=== PATIENT | male | born 1940 | race Caucasian/White ===

== ENCOUNTER 2018-07-23 14:01 | Emergency (ER) | payer OTHER ==
--- NOTE | 2018-07-23 16:12 | RAD REPORT ---
EXAM DESCRIPTION: RAD - Hip Right 2 View - 07/23/2018 4:07 pm CLINICAL HISTORY: Right hip pain status post fall FINDINGS: No fracture or dislocation is seen. The bones are osteoporotic. If patient continues to have symptoms to suggest an occult fracture MRI would be recommended
--- NOTE | 2018-07-23 16:43 | EDPHYS ---
Physician Documentation [facility] Name: Adolfo Dennis Age: 77 yrs Sex: Male : 1940 Arrival Date: 07/23/2018 Time: 14:07 Bed 13 Private MD: ADOLFO CHENG ED Physician Jose R Buchanan HPI: 07/23 16:19 This 77 yrs old Male presents to ER via Wheelchair with complaints of Fall jr8 Injury - HIP,BACK. 16:19 Details of fall: The patient fell from an upright position, while standing. Onset: The jr8 symptoms/episode began/occurred acutely, 2 day(s) ago. Associated injuries: The patient sustained mid back, right hip. Severity of symptoms: At their worst the symptoms were mild, in the emergency department the symptoms are unchanged. The patient has not experienced similar symptoms in the past. The patient has not recently seen a physician. Patient stated that he was walking on his wood floors with his socks at home. Slipped falling backwards landing on back and right hip. Pain since then. Able to bear weight . Historical: - Allergies: 14:26 No Known Allergies; aj1 - PMHx: 14:26 acid reflux; Hypertension; Hypothyroidism; LYMPHOMA; aj1 - Immunization history:: Adult Immunizations up to date. - Social history:: Smoking status: Patient/guardian denies using tobacco. - Ebola Screening: : No symptoms or risks identified at this time. ROS: 16:19 Eyes: Negative for injury, pain, redness, and discharge, ENT: Negative for injury, jr8 pain, and discharge, Neck: Negative for injury, pain, and swelling, Cardiovascular: Negative for chest pain, palpitations, and edema, Respiratory: Negative for shortness of breath, cough, wheezing, and pleuritic chest pain, Abdomen/GI: Negative for abdominal pain, nausea, vomiting, diarrhea, and constipation, Skin: Negative for injury, rash, and discoloration, Neuro: Negative for headache, weakness, numbness, tingling, and seizure. 16:19 Back: Positive for pain at rest, pain with movement, of the right mid back. 16:19 MS/extremity: Positive for pain, tenderness, of the right hip. Exam: 16:19 Head/Face: Normocephalic, atraumatic. Eyes: Pupils equal round and reactive to light, jr8 extra-ocular motions intact. Lids and lashes normal. Conjunctiva and sclera are non-icteric and not injected. Cornea within normal limits. Periorbital areas with no swelling, redness, or edema. ENT: Nares patent. No nasal discharge, no septal abnormalities noted. Tympanic membranes are normal and external auditory canals are clear. Oropharynx with no redness, swelling, or masses, exudates, or evidence of obstruction, uvula midline. Mucous membranes moist. Neck: Trachea midline, no thyromegaly or masses palpated, and no cervical lymphadenopathy. Supple, full range of motion without nuchal rigidity, or vertebral point tenderness. No Meningismus. Chest/axilla: Normal chest wall appearance and motion. Nontender with no deformity. No lesions are appreciated. Cardiovascular: Regular rate and rhythm with a normal S1 and S2. No gallops, murmurs, or rubs. Normal PMI, no JVD. No pulse deficits. Respiratory: Lungs have equal breath sounds bilaterally, clear to auscultation and percussion. No rales, rhonchi or wheezes noted. No increased work of breathing, no retractions or nasal flaring. Abdomen/GI: Soft, non-tender, with normal bowel sounds. No distension or tympany. No guarding or rebound. No evidence of tenderness throughout. Skin: Warm, dry with normal turgor. Normal color with no rashes, no lesions, and no evidence of cellulitis. Neuro: Awake and alert, GCS 15, oriented to person, place, time, and situation. Cranial nerves II-XII grossly intact. Motor strength 5/5 in all extremities. Sensory grossly intact. Cerebellar exam normal. Normal gait. 16:19 Back: pain, that is moderate, of the right mid back, ROM is normal, normal spinal alignment noted, CVA tenderness, is absent, vertebral tenderness, is not appreciated, bruising noted to right mid back. 16:19 Musculoskeletal/extremity: Extremities: grossly normal except: noted in the right hip: pain, tenderness, ROM: intact in all extremities, full active range of motion, full passive range of motion, Circulation is intact in all extremities. Sensation intact. Vital Signs: 14:26 BP 153 / 80; Pulse 63; Resp 18; Temp 97.9; Pulse Ox 98% on R/A; Weight 83.91 kg (R); aj1 Height 5 ft. 9 in. (175.26 cm) (R); Pain 0/10; 14:26 Body Mass Index 27.32 (83.91 kg, 175.26 cm) aj1 MDM: 15:27 Patient medically screened. jr8 16:41 Data reviewed: vital signs, nurses notes, radiologic studies, plain films, and as a jr8 result, I will discharge patient. Data interpreted: Pulse oximetry: on room air is 98 %. Interpretation: normal. Counseling: I had a detailed discussion with the patient and/or guardian regarding: the historical points, exam findings, and any diagnostic results supporting the discharge/admit diagnosis, radiology results, the need for outpatient follow up, a family practitioner, to return to the emergency department if symptoms worsen or persist or if there are any questions or concerns that arise at home. 07/23 15:28 Order name: XRAY Ribs RIGHT jr8 07/23 15:28 Order name: XRAY Hip RIGHT 2 view; Complete Time: 16:18 jr8 Administered Medications: 16:58 Drug: [place] (7.5 mg-325 mg) 1 tabs Route: PO; la1 16:58 Follow up: Response: No adverse reaction la1 Disposition: 07/23/18 16:42 Discharged to Home. Impression: Contusion of right hip, Rib contusion . - Condition is Stable. - Discharge Instructions: Contusion, Hip Pain. - Medication Reconciliation Form, Thank You Letter, Antibiotic Education, Prescription Opioid Use form. - Follow up: Private Physician; When: 5 - 6 days; Reason: Recheck today's complaints, Continuance of care, Re-evaluation by your physician. - Problem is new. - Symptoms have improved. Addendum: 08/02/2018 08:08 Co-signature as Attending Physician, Jose R Buchanan MD I agree with the assessment and k dr plan of care. Signatures: Dispatcher [employer] EDMamta Jain RN RN aj1 Jose R Buchanan MD MD [facility] Raf Mckenna PA PA jr8 Donal Gray RN RN la1 Corrections: (The following items were deleted from the chart) 07/23 16:59 16:42 07/23/2018 16:42 Discharged to Home. Impression: Contusion of right hip; Rib la1 contusion . Condition is Stable. Forms are Medication Reconciliation Form, Thank You Letter, Antibiotic Education, Prescription Opioid Use. Follow up: Private Physician; When: 5 - 6 days; Reason: Recheck today's complaints, Continuance of care, Re-evaluation by your physician. Problem is new. Symptoms have improved. jr8
--- NOTE | 2018-07-23 16:43 | ER ---
Nurse's Notes [facility] Name: Adolfo Dennis Age: 77 yrs Sex: Male : 1940 Arrival Date: 07/23/2018 Time: 14:07 Bed 13 Private MD: ADOLFO CHENG Diagnosis: Contusion of right hip;Rib contusion Presentation: 07/23 14:23 Presenting complaint: Child states: He fell out of bed 2 days ago, when he was reaching aj1 down to get his house shoes. I've been watching him and he doesn't seem to be getting any better. At first he said his back where he has a bruise was the only place that hurts but now he's pointing lower down. Denies LOC. Patient takes ASA 81 mg daily. Denies hitting his head in the fall. Patient states that he only has pain when he moves. Care prior to arrival: None. Mechanism of Injury: Fall out of bed. Trauma event details[place] . 14[place]23 Acuity: OFELIA 3 aj1 14:23 Method Of Arrival: Wheelchair aj1 14:26 Transition of care: patient was not received from another setting of care. Onset of aj1 symptoms was July 21, 2018. Risk Assessment: Do you want to hurt yourself or someone else? Patient reports no desire to harm self or others. Initial Sepsis Screen: Does the patient meet any 2 criteria? No. Patient's initial sepsis screen is negative. Does the patient have a suspected source of infection? No. Patient's initial sepsis screen is negative. Triage Assessment: 14:26 General: Appears in no apparent distress. comfortable, Behavior is calm, cooperative, aj1 appropriate for age. Pain: Complains of pain in low back area Pain currently is 0 out of 10 on a pain scale. Neuro: Level of Consciousness is awake, alert, obeys commands. Cardiovascular: Patient's skin is warm and dry. Respiratory: Airway is patent Respiratory effort is even, unlabored, Respiratory pattern is regular, symmetrical. Trauma Activation: Not Applicable Physician: ED Physician; Name: ; Notified At: ; Arrived At: Physician: General Surgeon; Name: ; Notified At: ; Arrived At: Physician: Radiology; Name: ; Notified At: ; Arrived At: Physician: Respiratory; Name: ; Notified At: ; Arrived At: Physician: Lab; Name: ; Notified At: ; Arrived At: Historical: - Allergies: 14:26 No Known Allergies; aj1 - PMHx: 14:26 acid reflux; Hypertension; Hypothyroidism; LYMPHOMA; aj1 - Immunization history:: Adult Immunizations up to date. - Social history:: Smoking status: Patient/guardian denies using tobacco. - Ebola Screening: : No symptoms or risks identified at this time. Screenin:24 Abuse screen: Denies threats or abuse. Nutritional screening: No deficits noted. la1 Tuberculosis screening: No symptoms or risk factors identified. Fall Risk None identified. Assessment: 15:24 General: Appears in no apparent distress. Behavior is calm, cooperative. Pain: la1 Complains of pain in back and low back area. Neuro: Level of Consciousness is awake, alert, obeys commands. Cardiovascular: Patient's skin is warm and dry. Respiratory: Airway is patent Respiratory effort is even, unlabored, Respiratory pattern is regular, symmetrical. GI: Abdomen is round non-distended. : No signs and/or symptoms were reported regarding the genitourinary system. Musculoskeletal: Circulation, motion, and sensation intact. Range of motion: intact in all extremities. 16:04 Reassessment: Patient appears in no apparent distress at this time. No changes from la1 previously documented assessment. Patient and/or family updated on plan of care and expected duration. Pain level reassessed. Vital Signs: 14:26 BP 153 / 80; Pulse 63; Resp 18; Temp 97.9; Pulse Ox 98% on R/A; Weight 83.91 kg (R); aj1 Height 5 ft. 9 in. (175.26 cm) (R); Pain 0/10; 14:26 Body Mass Index 27.32 (83.91 kg, 175.26 cm) aj1 ED Course: 14:07 Patient arrived in ED. sb2 14:07 ADOLFO CHENG is Private Physician. sb2 14:26 Triage completed. aj1 14:26 Arm band placed on Patient placed in waiting room, Patient notified of wait time. aj1 14:48 Donal Gray RN is Primary Nurse. la1 15:13 Raf Mckenna PA is PHCP. jr8 15:13 Jose R Buchanan MD is Attending Physician. jr8 15:25 Call light in reach. Side rails up X 1. la1 15:56 X-ray completed. Patient tolerated procedure well. Patient moved back from radiology. az 15:57 XRAY Ribs RIGHT In Process Unspecified. EDMS 15:57 XRAY Hip RIGHT 2 view In Process Unspecified. EDMS 16:58 No provider procedures requiring assistance completed. Patient did not have IV access la1 during this emergency room visit. Administered Medications: 16:58 Drug: [place] (7.5 mg-325 mg) 1 tabs Route: PO; la1 16:58 Follow up: Response: No adverse reaction la1 Outcome: 16:42 Discharge ordered by . elia 16:58 Discharged to home ambulatory. la1 16:58 Condition: stable 16:58 Discharge instructions given to patient, Instructed on discharge instructions, follow up and referral plans. medication usage, Demonstrated understanding of instructions, follow-up care, medications. 16:59 Patient left the ED. la1 Signatures: Dispatcher [employer] Mamta Guadalupe RN RN aj1 Raf Mckenna PA PA jr8 Donal Gray RN RN la1 Navya Gibbs2 Reba Marquez Corrections: (The following items were deleted from the chart) 14:28 14:26 Arm band placed on Patient placed in an exam room, aj1 aj1
[2018-07-23] MEDS ORDERED: HYDROCODONE/APAP 7.5/325 MG TAB ONE (16:53)
--- NOTE | 2018-07-23 17:42 | RAD REPORT ---
EXAM DESCRIPTION: RAD - Ribs Right - 07/23/2018 4:06 pm CLINICAL HISTORY: PAIN Fall COMPARISON: No comparisons FINDINGS: Diffuse osteopenia is noted. No displaced fracture is seen. Given the degree of osteopenia , if pain persists, CT imaging would be useful.
== END 2018-07-23 16:59 | disposition home or self-care (01) ==
LOC: ER 14:01
DX: S70.01XA Contusion of right hip, initial encounter (principal); S20.20XA Contusion of thorax, unspecified, initial encounter; W01.0XXA Fall on same level from slipping, tripping and stumbling without subsequent striking against object, initial encounter; Y93.01 Activity, walking, marching and hiking; Y92.008 Other place in unspecified non-institutional (private) residence as the place of occurrence of the external cause; I10 Essential (primary) hypertension
CPT/HCPCS: 99283

== ENCOUNTER 2018-12-13 15:01 | Emergency (ER) | payer OTHER ==
[2018-12-13] MEDS ORDERED: DIAZEPAM 5 MG TABLET ONE (17:57)
--- NOTE | 2018-12-13 18:09 | RAD REPORT ---
EXAM DESCRIPTION: RAD - Shoulder Left 2 View - 12/13/2018 6:01 pm CLINICAL HISTORY: pain post fall COMPARISON: No comparisons FINDINGS: Mild AC joint and glenohumeral joint arthritic changes are present. An acute fracture is n ot seen.
--- NOTE | 2018-12-13 18:24 | EDPHYS ---
Physician Documentation [facility] Name: Adolfo Dennis Age: 78 yrs Sex: Male : 1940 Arrival Date: 12/13/2018 Time: 15:04 Bed 10 Private MD: ADOLFO CHENG ED Physician García Watkins HPI: 12/13 17:40 This 78 yrs old Male presents to ER via Ambulatory with complaints of Fall snw Injury, Shoulder Injury. 17:40 Details of fall: The patient fell from an upright position, while walking, on a ramp. snw Onset: The symptoms/episode began/occurred suddenly, 2 day(s) ago, and became persistent. Associated injuries: The patient sustained left shoulder, decreased range of motion. Severity of symptoms: At their worst the symptoms were moderate. The patient has not experienced similar symptoms in the past. It is unknown whether or not the patient has recently seen a physician. no LOC, pt states he just slipped, no other injury. Historical: - Allergies: 16:00 No Known Allergies; aa5 - PMHx: 16:00 acid reflux; Hypertension; Hypothyroidism; LYMPHOMA; aa5 - Immunization history:: Flu vaccine is not up to date. - Social history:: Smoking status: Patient/guardian denies using tobacco. - Ebola Screening: : No symptoms or risks identified at this time. ROS: 17:40 Constitutional: Negative for fever, chills, and weight loss, Eyes: Negative for injury, snw pain, redness, and discharge, ENT: Negative for injury, pain, and discharge, Neck: Negative for injury, pain, and swelling, Cardiovascular: Negative for chest pain, palpitations, and edema, Respiratory: Negative for shortness of breath, cough, wheezing, and pleuritic chest pain, Abdomen/GI: Negative for abdominal pain, nausea, vomiting, diarrhea, and constipation, Back: Negative for injury and pain, : Negative for injury, bleeding, discharge, and swelling, Skin: Negative for injury, rash, and discoloration, Neuro: Negative for headache, weakness, numbness, tingling, and seizure. 17:40 MS/extremity: Positive for injury or acute deformity, decreased range of motion, pain, of the left shoulder. Exam: 17:39 Constitutional: This is a well developed, well nourished patient who is awake, alert, snw and in no acute distress. Head/Face: Normocephalic, atraumatic. Eyes: Pupils equal round and reactive to light, extra-ocular motions intact. Lids and lashes normal. Conjunctiva and sclera are non-icteric and not injected. Cornea within normal limits. Periorbital areas with no swelling, redness, or edema. ENT: Nares patent. No nasal discharge, no septal abnormalities noted. Tympanic membranes are normal and external auditory canals are clear. Oropharynx with no redness, swelling, or masses, exudates, or evidence of obstruction, uvula midline. Mucous membranes moist. Neck: Trachea midline, no thyromegaly or masses palpated, and no cervical lymphadenopathy. Supple, full range of motion without nuchal rigidity, or vertebral point tenderness. No Meningismus. Chest/axilla: Normal chest wall appearance and motion. Nontender with no deformity. No lesions are appreciated. Cardiovascular: Regular rate and rhythm with a normal S1 and S2. No gallops, murmurs, or rubs. Normal PMI, no JVD. No pulse deficits. Respiratory: Lungs have equal breath sounds bilaterally, clear to auscultation and percussion. No rales, rhonchi or wheezes noted. No increased work of breathing, no retractions or nasal flaring. Abdomen/GI: Soft, non-tender, with normal bowel sounds. No distension or tympany. No guarding or rebound. No evidence of tenderness throughout. Back: No spinal tenderness. No costovertebral tenderness. Full range of motion. Skin: Warm, dry with normal turgor. Normal color with no rashes, no lesions, and no evidence of cellulitis. Neuro: Awake and alert, GCS 15, oriented to person, place, time, and situation. Cranial nerves II-XII grossly intact. Motor strength 5/5 in all extremities. Sensory grossly intact. Cerebellar exam normal. Normal gait. Psych: Awake, alert, with orientation to person, place and time. Behavior, mood, and affect are within normal limits. 17:39 Musculoskeletal/extremity: Extremities: grossly normal except: noted in the left shoulder: decreased ROM, + painful arc, ROM: limited active range of motion due to pain, in the left shoulder, Circulation is intact in all extremities. Sensation intact. Compartment Syndrome exam of affected extremity: is normal. Vital Signs: 16:00 BP 152 / 92; Pulse 62; Resp 16 S; Temp 97.7(TE); Pulse Ox 97% on R/A; Weight 82.55 kg aa5 (R); Pain 2/10; MDM: 16:59 Patient medically screened. snw 18:25 Data reviewed: vital signs, nurses notes. Data interpreted: Pulse oximetry: on room air snw is 97 %. Interpretation: normal. Counseling: I had a detailed discussion with the patient and/or guardian regarding: the historical points, exam findings, and any diagnostic results supporting the discharge/admit diagnosis, the presence of at least one elevated blood pressure reading (>120/80) during this emergency department visit, radiology results, the need for outpatient follow up, to return to the emergency department if symptoms worsen or persist or if there are any questions or concerns that arise at home. Special discussion: I have referred the patient to see his PCP for further evaluation of high blood pressure. Based on the history and exam findings, there is no indication for further emergent testing or inpatient evaluation. I discussed with the patient/guardian the need to see the orthopedic surgeon for further evaluation of the symptoms. I discussed with the patient/guardian the need to see the primary care provider for further evaluation of the symptoms. 12/13 16:01 Order name: Shoulder Left (2 View) XRAY; Complete Time: 18:11 aa5 Administered Medications: 17:51 Drug: Valium 5 mg Route: PO; fc 18:59 Follow up: Response: No adverse reaction; Marked relief of symptoms; Pain is decreased fc Disposition: 12/14 09:45 Co-signature as Attending Physician, García Watkins MD. rn Disposition: 12/13/18 18:23 Discharged to Home. Impression: Fall on same level from slipping, tripping and stumbling with subsequent striking against object, Pain in left shoulder, Osteoarthritis, unspecified site. - Condition is Stable. - Discharge Instructions: Joint Pain, Arthritis, Musculoskeletal Pain, Shoulder Pain, Shoulder Range of Motion Exercises, Cryotherapy, Heat Therapy. - Prescriptions for orphenadrine citrate 100 mg Oral Tablet Sustained Release - take 1 tablet by ORAL route 2 times per day As needed; 20 tablet. - Medication Reconciliation Form, Thank You Letter, Antibiotic Education, Prescription Opioid Use form. - Follow up: Private Physician; When: 2 - 3 days; Reason: Recheck today's complaints, Continuance of care, Re-evaluation by your physician. Follow up: Emergency Department; When: As needed; Reason: Worsening of condition. Signatures: Dispatcher [employer] Bety Harper, EMIGDIO-C ANIMAL SCIENTIST-Csnw Joanne Ferguson RN RN García Watkins MD MD rn Calderon, Audri, RN RN aa5 Corrections: (The following items were deleted from the chart) 12/13 18:59 18:22 Sling ordered. snw 19:01 18:23 12/13/2018 18:23 Discharged to Home. Impression: Fall on same level from fc slipping, tripping and stumbling with subsequent striking against object; Pain in left shoulder; Osteoarthritis, unspecified site. Condition is Stable. Forms are Medication Reconciliation Form, Thank You Letter, Antibiotic Education, Prescription Opioid Use. Follow up: Private Physician; When: 2 - 3 days; Reason: Recheck today's complaints, Continuance of care, Re-evaluation by your physician. Follow up: Emergency Department; When: As needed; Reason: Worsening of condition. snw
--- NOTE | 2018-12-13 18:24 | ER ---
Nurse's Notes [facility] Name: Adolfo Dennis Age: 78 yrs Sex: Male : 1940 Arrival Date: 12/13/2018 Time: 15:04 Bed 10 Private MD: ADOLFO CHENG Diagnosis: Fall on same level from slipping, tripping and stumbling with subsequent striking against object;Pain in left shoulder;Osteoarthritis, unspecified site Presentation: 12/13 15:58 Presenting complaint: Patient states: "I was going down a ramp so my feet came under me aa5 and I fell onto my left side". Pt reports fall was 2 days ago. c/o left shoulder pain. Denies head injury, Negative LOC. Transition of care: patient was not received from another setting of care. Onset of symptoms was November 2018. Risk Assessment: Do you want to hurt yourself or someone else? Patient reports no desire to harm self or others. Care prior to arrival: None. 15:58 Method Of Arrival: Ambulatory aa5 15:58 Acuity: OFELIA 4 aa5 18:25 Initial Sepsis Screen: Does the patient meet any 2 criteria? No. Patient's initial fc sepsis screen is negative. Does the patient have a suspected source of infection? No. Patient's initial sepsis screen is negative. Historical: - Allergies: 16:00 No Known Allergies; aa5 - PMHx: 16:00 acid reflux; Hypertension; Hypothyroidism; LYMPHOMA; aa5 - Immunization history:: Flu vaccine is not up to date. - Social history:: Smoking status: Patient/guardian denies using tobacco. - Ebola Screening: : No symptoms or risks identified at this time. Screenin:08 Abuse screen: Denies threats or abuse. Nutritional screening: No deficits noted. fc Tuberculosis screening: No symptoms or risk factors identified. Fall Risk Fall in past 12 months (25 points). No secondary diagnosis (0 pts). No IV (0 pts). Ambulatory Aid- None/Bed Rest/Nurse Assist (0 pts). Gait- Normal/Bed Rest/Wheelchair (0 pts) Mental Status- Overestimates/Forgets Limitations (15 pts.). Total Kohli Fall Scale indicates Low Risk Score (25-44 pts). Fall prevention measures have been instituted. Side Rails Up X 2 Placed close to Nursing Station Frequent Obs/Assesments occuring Family Present and informed to notify staff if they need to leave bedside As available Patient and Family Educated on Fall Prevention Program and strategies. Assessment: 17:08 General: Appears uncomfortable, slender, Behavior is calm, cooperative, appropriate for fc age. Pain: Complains of pain in left shoulder Pain currently is 6 out of 10 on a pain scale. Quality of pain is described as aching, dull, throbbing, Pain began 2-3 days ago. Is episodic, Aggravated by increased activity, repositioning. Neuro: Level of Consciousness is awake, alert, obeys commands, Oriented to person, place, time, situation, Appropriate for age. Cardiovascular: No deficits noted. Respiratory: No deficits noted. GI: No deficits noted. : No deficits noted. EENT: No deficits noted. Derm: Skin is pink, warm \\T\\ dry. Musculoskeletal: Circulation, motion, and sensation intact. Capillary refill < 3 seconds, Range of motion: limited in left shoulder. 17:25 Reassessment: No changes from previously documented assessment. Patient and/or family fc updated on plan of care and expected duration. Pain level reassessed. Patient is alert, oriented x 3, equal unlabored respirations, skin warm/dry/pink. Bety ROLL MECHANIC in to see and examine pt. 17:52 Reassessment: Xrays complete and medication given as ordered. 18:15 Reassessment: Bety ROLL MECHANIC in to speak with pt and re: results of xrays. Pt refusing fc slings states that they have one at home. Vital Signs: 16:00 BP 152 / 92; Pulse 62; Resp 16 S; Temp 97.7(TE); Pulse Ox 97% on R/A; Weight 82.55 kg aa5 (R); Pain 2/10; ED Course: 15:04 Patient arrived in ED. rg4 15:04 ADOLFO CHENG is Private Physician. rg4 15:58 Arm band placed on. aa5 16:00 Triage completed. aa5 16:58 [facility] Washington [facility] snw 16:58 García Watkins MD is Attending Physician. snw 17:08 Patient has correct armband on for positive identification. Bed in low position. Call fc light in reach. 17:38 No provider procedures requiring assistance completed. fc 18:01 Shoulder Left (2 View) XRAY In Process Unspecified. EDMS 18:15 Patient did not have IV access during this emergency room visit. fc Administered Medications: 17:51 Drug: Valium 5 mg Route: PO; fc 18:59 Follow up: Response: No adverse reaction; Marked relief of symptoms; Pain is decreased fc Outcome: 18:23 Discharge ordered by . clara 18:25 Discharged to home ambulatory, with family. 18:25 Condition: good 18:25 Discharge instructions given to patient, family, Instructed on discharge instructions, follow up and referral plans. no drinking with medication, no driving heavy equipment, medication usage, Demonstrated understanding of instructions, follow-up care, medications, Prescriptions given X 1. 19:01 Patient left the ED. fc Signatures: Dispatcher [employer] EDDE Bety Washington, [employer] BUILD[employer]IAL SUPERVISOR-Joanne Winston RN RN Gladis Pitts RN RN Louise Darden rg4 Corrections: (The following items were deleted from the chart) 16:01 16:00 BP 152 / 92; Pulse 62bpm; Resp 16bpm; Spontaneous; Pulse Ox 97% RA; Temp 97.7F aa5 Temporal; 82.55 kg Reported; aa5 19:01 18:59 Discharged to home ambulatory, with family, [facility] 19: 18:59 Condition: good [facility] 19:01 18:59 Discharge instructions given to patient, family, Instructed on discharge instructions, follow up and referral plans. no drinking with medication, no driving heavy equipment, medication usage, Demonstrated understanding of instructions, follow-up care, medications, Prescriptions given X 1, fc
== END 2018-12-13 19:01 | disposition home or self-care (01) ==
LOC: ER 15:01
DX: M25.512 Pain in left shoulder (principal); W01.10XA Fall on same level from slipping, tripping and stumbling with subsequent striking against unspecified object, initial encounter; Y93.01 Activity, walking, marching and hiking; M19.90 Unspecified osteoarthritis, unspecified site; K21.9 Gastro-esophageal reflux disease without esophagitis; I10 Essential (primary) hypertension; E03.9 Hypothyroidism, unspecified
CPT/HCPCS: 99283